=== PATIENT | female | born 1995 | race Caucasian/White ===

== ENCOUNTER 2019-06-30 03:42 | Inpatient (IN) ==
[2019-06-30 04:00] LABS: URINE SOURCE VOIDED
[2019-06-30 04:10] LABS: BILIRUBIN URINE NEGATIVE (NEGATIVE); BLOOD URINE NEGATIVE (NEGATIVE); CLARITY CLEAR (CLEAR); COLOR YELLOW; GLUCOSE URINE NEGATIVE (NEGATIVE); KETONE URINE 1+(Small) mg/dL (NEGATIVE); LEUKOCYTES URINE NEGATIVE (NEGATIVE); NITRITE URINE NEGATIVE (NEGATIVE); PROTEIN URINE TRACE mg/dL (NEGATIVE); UROBILINOGEN URINE NORMAL
[2019-06-30] MEDS: LR 1,000 ML IV SCH ×3 (04:55→18:59)
[2019-06-30] MEDS ORDERED: PERCOCET-5 PO ONE (06:13)
[2019-06-30] MEDS ORDERED: STADOL IV PRN ×2 (07:40→15:22)
[2019-06-30] MEDS ORDERED: LR 1,000 ML IV SCH (07:45)
[2019-06-30] MEDS: STADOL IV PRN ×2 (08:07→10:13)
[2019-06-30] MEDS ORDERED: REGLAN PO ONE (15:22)
[2019-06-30] MEDS ORDERED: ZOFRAN IV PRN (15:22)
[2019-06-30] MEDS ORDERED: KEFZOL 1 GM/D5W 1 GM/50 ML IVPB IV PRN (15:22)
[2019-06-30] MEDS ORDERED: AMPICILLIN 2 GM/NS 2 GM/100 ML IVPB IV ONE (15:22)
[2019-06-30] MEDS ORDERED: PEPCID IV PRN (15:22)
[2019-06-30] MEDS ORDERED: TYLENOL PO PRN (15:22)
[2019-06-30] MEDS ORDERED: PEPCID PO ONE (15:22)
[2019-06-30] MEDS ORDERED: PEPCID PO PRN (15:22)
[2019-06-30] MEDS ORDERED: XYLOCAINE-MPF 1% INJ PRN ×2 (15:26→22:32)
[2019-06-30] MEDS ORDERED: MINERAL OIL TOP PRN (15:27)
[2019-06-30] MEDS ORDERED: PITOCIN 30 UNITS/NS 30 UNIT/500 ML IV.SOLN IV SCH ×2 (15:30→22:45)
[2019-06-30] MEDS ORDERED: SODIUM CHLORIDE 0.9% INJ SCH (15:30)
[2019-06-30] MEDS ORDERED: REGLAN IV SCH (16:00)
[2019-06-30] MEDS ORDERED: FENTANYL-BUPIV-NS 2 MCG-0.1% 250 ML EPIDURAL SCH (16:00)
[2019-06-30] MEDS ORDERED: FENTANYL INJ ONE (16:00)
[2019-06-30] MEDS ORDERED: LR IV SCH (16:00)
[2019-06-30] MEDS ORDERED: BICITRA PO ONE (16:00)
--- NOTE | 2019-06-30 16:23 | HISTORY AND PHYSICAL ---
HISTORY OF PRESENT ILLNESS: The patient is 24-year-old white female, G2, P1 with a history of labor and delivery, presents at 36 and 3/7th weeks with uterine contractions. The patient presently on [place] and her last shot was 4 days ago and [place]. The patient was noted to be 3 cm upon initial contact in Labor and Delivery for assessment and then after several hours she had continued uterine contractions with increasing strength of contractions and a recheck of her cervix showed that she had changed to 4 to have 80% and -2 station. Vertex presentation was noted. The patient is making a cervical change, admit in early labor. PAST MEDICAL HISTORY: Significant for history of anxiety and depression. Presently not on any medicine. PAST SURGICAL HISTORY: Appendectomy. PAST OB HISTORY: G2, P1, spontaneous vaginal delivery x1. [employer] HISTORY: Menarche at age 14. FAMILY HISTORY: Significant for diabetes mellitus. REVIEW OF SYSTEMS: All systems reviewed and noncontributory. SOCIAL HISTORY: Tobacco use. She reports she quit 2 years ago. Alcohol use: None. MEDICATIONS: vitamins, Swapna injections and Tylenol p.r.n. ALLERGIES: Phenergan, latex, shellfish and bleach. PHYSICAL EXAMINATION: VITAL SIGNS: Height 5 feet 1 inch, weight 144 pounds, temperature 98.3 degrees, blood pressure 109/62, respirations 20. Pulse of 82. heart rate in the 140s with positive accelerations. HEENT: Pupils equal, round, and reactive to light and accommodation. Extraocular movements intact. Oropharynx clear. NECK: Supple. No thyromegaly. LUNGS: Clear to auscultation. HEART: Regular rate and rhythm. ABDOMEN: Gravid, nontender. Cervix was 4.5 cm dilated, 80% effaced, -2 station. EXTREMITIES: No clubbing, cyanosis, or edema noted. NEUROLOGIC: Cranial nerves 2-12 grossly intact. Motor 5/5. DTRs 2+ bilaterally. ASSESSMENT AND PLAN: Intrauterine 36 and 3/7th weeks in active labor. Patient will be admitted and start group B strep prophylaxis. Patient may have epidural. Anticipate a vaginal delivery. cc: Alfonzo Flood III, MD
[2019-06-30 16:51] LABS: BASO# 0.03 X1000 (0.0-0.2); BASO% 0.3 % (0.0-0.8); EOS# 0.25 X1000 (0.0-0.7); EOS% 2.5 % (0.0-10.0); HEMATOCRIT 30.5 % (37.0-47.0); HEMOGLOBIN 9.6 g/dL (12.0-16.0); IMM GRAN# 0.03 X1000 (0.0-0.04); IMM GRAN% 0.3 % (0.0-0.5); LYMPH# 2.83 X1000 (1.2-3.4); LYMPH% 28.3 % (20.5-51.1); MCH 26.5 PG (27-31); MCHC 31.5 g/dL (33-37); MCV 84.3 FL (81-99); MONO# 0.71 X1000 (0.11-0.59); MONO% 7.1 % (1.7-9.3); MPV 11.2 FL (7.4-10.4); NEUT# 6.14 X1000 (1.4-6.5); NEUT% 61.5 % (42.2-75.2); PLT 215 X1000 (130-400); RBC 3.62 XMIL (4.2-5.4); RDW 12.8 % (11.5-14.5); WBC 9.99 X1000 (4.8-10.8)
[2019-06-30] MEDS ORDERED: EPHEDRINE ONE (18:01)
[2019-06-30] MEDS ORDERED: AMPICILLIN 1 GM/NS 1 GM/50 ML IVPB IV SCH (19:24)
[2019-06-30] MEDS ORDERED: MARCAINE 0.5% PF ONE (21:10)
[2019-06-30] MEDS ORDERED: XYLOCAINE-MPF 2% ONE ×2 (21:19→21:28)
[2019-06-30] MEDS ORDERED: FENTANYL ONE (21:24)
[2019-06-30] MEDS ORDERED: SODIUM CHLORIDE 0.9% 10 ML ONE (21:24)
[2019-06-30 22:06] LABS: UR AMPHETAMINES QUAL NONE DETECTED (NONE DETECT); UR BARBITUATES QUAL NONE DETECTED (NONE DETECT); UR BENZODIAZEPIN QUAL NONE DETECTED (NONE DETECT); UR CANNABINOIDS QUAL NONE DETECTED (NONE DETECT); UR COCAINE QUAL NONE DETECTED (NONE DETECT); UR METHADONE QUAL NONE DETECTED (NONE DETECT); UR METHAMPHETAMINE QUAL NONE DETECTED (NONE DETECT); UR OPIATES QUAL NONE DETECTED (NONE DETECT); UR OXYCODONE QUAL NONE DETECTED (NONE DETECT); UR PCP QUAL NONE DETECTED (NONE DETECT); UR PROPOXYPHENE QUAL NONE DETECTED (NONE DETECT); UR TCA QUAL NONE DETECTED (NONE DETECT)
[2019-06-30] MEDS ORDERED: AMBIEN PO PRN (22:32)
[2019-06-30] MEDS ORDERED: BOOSTRIX VACCINE IM ONE (22:32)
[2019-06-30] MEDS ORDERED: BENADRYL IV PRN (22:32)
[2019-06-30] MEDS ORDERED: M-M-R II VACCINE SUBQ ONE (22:32)
[2019-06-30] MEDS ORDERED: HYDROXYZINE IM PRN (22:32)
[2019-06-30] MEDS ORDERED: MINERAL OIL PO PRN (22:32)
[2019-06-30] MEDS ORDERED: PERI MEDS (DERMOPLAST/NUPERCAINAL/TUCKS) MISC PRN (22:32)
[2019-06-30] MEDS ORDERED: BENADRYL PO PRN (22:32)
[2019-06-30] MEDS ORDERED: ATARAX PO PRN (22:32)
[2019-06-30] MEDS ORDERED: NORCO-5 PO PRN (22:32)
[2019-06-30] MEDS ORDERED: PITOCIN IM PRN (22:32)
[2019-06-30] MEDS ORDERED: CYTOTEC PO PRN (22:32)
[2019-06-30] MEDS ORDERED: PITOCIN 20 UNITS/NS 20 UNITS/1,000 ML IV.SOLN IV SCH (22:45)
--- NOTE | 2019-06-30 22:46 | OPERATIVE NOTE ---
PROCEDURE DATE: 06/30/2019 DELIVERY NOTE: The patient progressed to complete and pushing. Had spontaneous vaginal delivery of a female , 6 pounds 7 ounces with Apgars of 9 and 9 at 22:16 on 06/30/2019 over an intact perineum. Cord blood sample was obtained at this time. Placenta delivered intact with 3 vessel cord. ESTIMATED BLOOD LOSS: 150 mL. ANESTHESIA: Was epidural. COUNTS: All counts were correct x2. cc: Alfonzo Flood III, MD
[2019-06-30] MEDS: NORCO-10 PO PRN (23:41)
[2019-06-30] MEDS: MOTRIN PO PRN (23:42)
[2019-06-30] MEDS ORDERED: PERICOLACE PO ONE (23:57)
[2019-07-01] MEDS: NORCO-10 PO PRN ×2 (05:58→13:49)
[2019-07-01 06:41] LABS: BASO# 0.03 X1000 (0.0-0.2); BASO% 0.2 % (0.0-0.8); EOS# 0.22 X1000 (0.0-0.7); EOS% 1.7 % (0.0-10.0); HEMOGLOBIN 10.1 g/dL (12.0-16.0); IMM GRAN# 0.03 X1000 (0.0-0.04); IMM GRAN% 0.2 % (0.0-0.5); LYMPH# 3.03 X1000 (1.2-3.4); LYMPH% 24.1 % (20.5-51.1); MCH 25.7 PG (27-31); MCHC 30.6 g/dL (33-37); MONO# 0.86 X1000 (0.11-0.59); MONO% 6.8 % (1.7-9.3); MPV 11.7 FL (7.4-10.4); NEUT# 8.41 X1000 (1.4-6.5); PLT 249 X1000 (130-400); RBC 3.93 XMIL (4.2-5.4); RDW 12.7 % (11.5-14.5); WBC 12.58 X1000 (4.8-10.8)
--- NOTE | 2019-07-01 07:24 | OB/GYN PROGRESS NOTE ---
Progress Note OB - . Patient Problems: Current Active Problems Problem Status Onset Vaginal delivery Acute OB Progress Note: Vital Signs - 24 hr 06/30/19 16:00 06/30/19 22:25 06/30/19 22:35 Temperature 97.3 F L 97.2 F L Pulse Rate 94 H 123 H 104 H Respiratory Rate 16 20 18 Blood Pressure 103/57 88/63 Blood Pressure [Left Arm] 88/63 103/55 O2 Sat by Pulse Oximetry 100 100 100 06/30/19 22:45 06/30/19 22:55 06/30/19 23:05 Temperature Pulse Rate 112 H 110 H 104 H Respiratory Rate 18 18 18 Blood Pressure Blood Pressure [Left Arm] 97/56 114/62 120/61 O2 Sat by Pulse Oximetry 100 100 100 06/30/19 23:15 06/30/19 23:25 06/30/19 23:34 Temperature 97.2 F L Pulse Rate 98 H 105 H 105 H Respiratory Rate 18 18 18 Blood Pressure 113/59 113/59 Blood Pressure [Left Arm] 117/53 113/59 O2 Sat by Pulse Oximetry 100 100 07/01/19 04:00 Temperature 97.5 F L Pulse Rate 76 Respiratory Rate 18 Blood Pressure 116/57 Blood Pressure [Left Arm] O2 Sat by Pulse Oximetry Laboratory Results - last 24 hr 06/30/19 06/30/19 06/30/19 03:45 16:40 16:40 WBC 9.99 RBC 3.62 L Hgb 9.6 L Hct 30.5 L MCV 84.3 MCH 26.5 L MCHC 31.5 L RDW Std Deviation 12.8 Plt Count 215 MPV 11.2 H Immature Gran % (Auto) 0.3 Neut % (Auto) 61.5 Lymph % (Auto) 28.3 [place] % (Auto) 7.1 Eos % (Auto) 2.5 Baso % (Auto) 0.3 Immature Gran # (Auto) 0.03 Neut # (Auto) 6.14 Lymph # (Auto) 2.83 [place] # (Auto) 0.71 H Eos # (Auto) 0.25 Baso # (Auto) 0.03 Glucose Urine Opiates Screen NONE DETECTED Ur Oxycodone Screen NONE DETECTED Urine Methadone Screen NONE DETECTED U Propoxyphene Qual NONE DETECTED Ur Barbituates Screen NONE DETECTED Ur Tricyclics Screen NONE DETECTED Ur Phencyclidine Scrn NONE DETECTED Ur Amphetamines Screen NONE DETECTED U Methamphetamines Scrn NONE DETECTED U Benzodiazepines Scrn NONE DETECTED Urine Cocaine Screen NONE DETECTED U Cannabinoids Screen NONE DETECTED RPR NON-REACTIVE 06/30/19 07/01/19 16:40 06:11 WBC 12.58 H RBC 3.93 L Hgb 10.1 L Hct 33.0 L MCV 84.0 MCH 25.7 L MCHC 30.6 L RDW Std Deviation 12.7 Plt Count 249 MPV 11.7 H Immature Gran % (Auto) 0.2 Neut % (Auto) 67.0 Lymph % (Auto) 24.1 [place] % (Auto) 6.8 Eos % (Auto) 1.7 Baso % (Auto) 0.2 Immature Gran # (Auto) 0.03 Neut # (Auto) 8.41 H Lymph # (Auto) 3.03 [place] # (Auto) 0.86 H Eos # (Auto) 0.22 Baso # (Auto) 0.03 Glucose 69 L Urine Opiates Screen Ur Oxycodone Screen Urine Methadone Screen U Propoxyphene Qual Ur Barbituates Screen Ur Tricyclics Screen Ur Phencyclidine Scrn Ur Amphetamines Screen U Methamphetamines Scrn U Benzodiazepines Scrn Urine Cocaine Screen U Cannabinoids Screen RPR PP1 no cx s/nt -cce breast feeding/pumping hgb 10.1 home in am discussed ambulation
[2019-07-01] MEDS: MOTRIN PO PRN ×2 (08:12→20:43)
[2019-07-01] MEDS: FERROUS SULFATE PO SCH (08:12)
[2019-07-01] MEDS ORDERED: PERICOLACE PO SCH (21:00)
--- NOTE | 2019-07-02 07:47 | DISCHARGE SUMMARY ---
ADMISSION DATE: 06/30/2019 DISCHARGE DATE: 07/02/2019 ADMITTING DIAGNOSES: 1. at 36 and 3/7th weeks gestation. 2. Multiparity. 3. History of delivery. 4. labor. DISCHARGE DIAGNOSES: 1. at 36 and 3/7th weeks gestation. 2. Multiparity. 3. History of delivery. 4. labor. 5. Liveborn infant delivered. BRIEF HISTORY AND HOSPITAL COURSE: Joslyn is a 24-year-old 2, para 1 at 36 and 3/7th weeks gestation who presents to Labor and Delivery in labor. She underwent a normal labor followed by a normal spontaneous vaginal delivery of a 6 pounds 7 ounce baby with Apgars 9 and 9. Please see separate delivery note. course was uncomplicated. day day #1, she is afebrile. She is ambulating, voiding, and tolerating a regular diet. Hemoglobin 10.1 from 9.6. On day #2, ambulating, voiding and tolerating a regular diet. Vital signs stable. Afebrile. Discharged home in stable condition. She is asked to follow up in the office in 6 weeks. Call the office for pain, fever greater than 100.4, and abnormal uterine bleeding. Maintain pelvic rest and regular diet. Continue vitamins and iron. A prescription for Motrin provided. cc: Alfonzo Flood III, MD
[2019-07-02] MEDS: NORCO-10 PO PRN (08:28)
[2019-07-02] MEDS: MOTRIN PO PRN (08:29)
[2019-07-02] MEDS: FERROUS SULFATE PO SCH (08:29)
[2019-07-02 16:14] VITALS: BP 126/61
== END 2019-07-02 17:30 | disposition home or self-care (01) | DRG 807 ==
LOC: P.OPLD 03:42 → P.LD 03:43
PROVIDERS: ADMIT Obstetrics & Gynecology; ATTEND Student in an Organized Health Care Education/Training Program